=== PATIENT | male | born 1940 | race Caucasian/White ===

== ENCOUNTER → 2022-07-02 10:55 | Outpatient (CLI) | payer MEDICARE, SELFPAY ==
--- NOTE | ~2022-07-02 | XR_ITS ---
EXAM: XR elbow RT min 3V DATE: 07/02/2022 11:34 HISTORY: rt upper ext pain s/p fall 2 weeks ago . COMPARISON: None available. FINDINGS: Decreased mineralization. No fracture or dislocation. No lytic or blastic lesion. Moderate degenerative change. No erosion or periosteal change. Soft tissues within normal limits. IMPRESSION: No acute osseous finding in the right elbow. Reviewed, dictated and finalized at location K.
--- NOTE | ~2022-07-02 | XR_ITS ---
EXAMINATION:XR cervical spine 4-5V DATE: 07/02/2022 11:34 INDICATION: Right upper extremity pain TECHNIQUE: AP, lateral, lateral swimmers and odontoid views of the cervical spine are provided. COMPARISON: None FINDINGS: There are 2 mm of anterolisthesis of C3 on C4. There are 2 mm of retrolisthesis of C6 on C7 . There are changes of anterior fusion an interbody device placement from C3 through C6 and posterior fusion on the right at C5-6. The odontoid is intact. The bones are osteopenic which limits the sensi tivity for fracture however none is seen. The vertebral body heights are maintained. Prevertebral sof t tissues are normal. IMPRESSION: 1. Postsurgical changes without acute osseous abnormality identified, sensitivity limited by osteopen ia. Reviewed, dictated and finalized at location A. IMPRESSION: 1. Postsurgical changes without acute osseous abnormality identified, sensitivi ty limited by osteopenia.
--- NOTE | ~2022-07-02 | XR_ITS ---
EXAM: XR shoulder RT min 2V DATE: 07/02/2022 11:34 HISTORY: rt upper ext pain s/p fall 2 weeks ago . COMPARISON: 04/05/2013. FINDINGS: Soft tissue anchor in the proximal humerus. Senescent changes in the lungs. Decreased mine ralization. No fracture or dislocation. No lytic or blastic lesion. Superior migration of the humeral head likely indicating rotator cuff pathology. Moderate AC joint and glenohumeral osteoarthritis. No erosion or periosteal change. Soft tissues within normal limits. IMPRESSION: No acute osseous finding in the right shoulder. Reviewed, dictated and finalized at location K.
== END ==
PROVIDERS: PCP Physician Assistant; Visit Provider Physician Assistant
DX: M25.511 Pain in right shoulder (principal); M54.2 Cervicalgia; M25.521 Pain in right elbow; Z98.890 Other specified postprocedural states
CPT/HCPCS: 72050; 73030; 73080

== ENCOUNTER 2024-01-16 10:43 | Outpatient (CLI) | payer MEDICARE, SELFPAY ==
--- NOTE | ~2024-01-16 | MR_ITS ---
MRI of the lumbar spine Clinical History: Radiculopathy Technique: Axial T2-weighted images, and sagittal T1-weighted, T2-weighted, and T2 fat-sat images wer e acquired. Findings: No acute fracture seen. There is 4 mm retrolisthesis of L1 over L2. There is 5 mm retrolist hesis of L2 over L3. There is 2 mm retrolisthesis of L3 over L4. No acute fracture seen. No suspiciou s bone marrow signal abnormality seen. At L1-L2, there is moderate to advanced degenerative disc 9. There is mild diffuse disc bulge and mil d facet arthropathy. No central canal stenosis. There is moderate to severe left neural foraminal david rowing, and mild right neural foraminal narrowing. At L2-L3, there is severe degenerative disc narrowing. Disc bulge and advanced facet arthropathy resu lt in severe spinal canal stenosis/thecal sac compression and severe bilateral neural foraminal narro wing, left worse than right. L3-L4, there is severe degenerative disc narrowing. Disc bulge and severe facet arthropathy result in severe spinal canal stenosis/thecal sac compression, and severe bilateral neural foraminal narrowing . At L4-L5, there is moderate degenerative disc narrowing. Diffuse disc bulge and severe facet arthropa thy result in severe spinal canal stenosis/thecal sac compression. There is severe right neural ap inal narrowing, and moderate to severe left neural foraminal narrowing. At L5-S1, there is advanced degenerative disc narrowing. Disc bulge and moderate facet arthropathy ar e present. There is minimal central canal stenosis. There is severe bilateral neural foraminal compro mise. Paravertebral soft tissues are unremarkable. Impression: Severe degenerative spondylosis, as above, with multilevel severe spinal canal stenosis and multileve l neural foraminal narrowing. 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 Reviewed, dictated and finalized at location M. Impression: Severe degenerative spondylosis, as above, with multilevel severe spinal canal stenosis and multilevel neural foraminal narrowing. 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
== END 2024-01-16 10:44 ==
LOC: MICIMG 10:44
PROVIDERS: PCP Physician Assistant; Visit Provider Physician Assistant
DX: M47.26 Other spondylosis with radiculopathy, lumbar region (principal)
CPT/HCPCS: 72148